=== PATIENT | female | born 2000 | race Hispanic/Latino ===

== ENCOUNTER 2022-06-17 09:56 | Emergency (ER) | payer OTHER ==
[~2022-06-17] VITALS: Ht 154.9 cm; Wt 74.5 kg
[2022-06-17] MEDS ORDERED: ONDANSETRON HCL INJ 2MG/ML 2ML 2 MG/ML VIAL IV STA (10:18)
[2022-06-17] MEDS ORDERED: ONDANSETRON HCL INJ 2MG/ML 2ML 2 MG/ML VIAL ONE (10:24)
[2022-06-17] MEDS ORDERED: SODIUM CHLORIDE 0.9% 1000ML 1,000 ML ONE (10:24)
[2022-06-17] MEDS ORDERED: SODIUM CHLORIDE 0.9% 1000ML 1,000 ML IV SCH (10:30)
[2022-06-17] MEDS ORDERED: DICYCLOMINE HCL10 MG PO (11:55)
[2022-06-17] MEDS ORDERED: ONDANSETRON ODT4 MG PO (11:55)
== END 2022-06-17 12:04 | disposition home or self-care (01) ==
LOC: FSED 10:00
DX: O26.91 Pregnancy related conditions, unspecified, first trimester (principal); R10.31 Right lower quadrant pain; O21.0 Mild hyperemesis gravidarum
CPT/HCPCS: 36415; 80053; 80076; 80307; 81003; 81025; 84702; 85025; 96374; 99283; J2405; J7030